=== PATIENT | female | born 1995 | race Caucasian/White ===

== ENCOUNTER 2023-08-31 15:22 | Emergency (ER) | payer OTHER ==
[2023-08-31 15:31] VITALS: BP 132/82; PULSE 88; RESP 18; TEMP 98.2; BMI 26.6
[2023-08-31] MEDS ORDERED: IBUPROFEN 600 MG TABLET (FP) PO ONE (15:39)
[2023-08-31] MEDS: IBUPROFEN 600 MG TABLET (FP) PO ONE (15:41)
== END 2023-08-31 16:30 | disposition home or self-care (01) ==
LOC: JER 15:22
DX: S39.012A Strain of muscle, fascia and tendon of lower back, initial encounter (principal); T24.032A Burn of unspecified degree of left lower leg, initial encounter; M54.6 Pain in thoracic spine; V43.32XA Unspecified car occupant injured in collision with other type car in nontraffic accident, initial encounter; Y93.I9 Activity, other involving external motion; Y92.412 Parkway as the place of occurrence of the external cause
CPT/HCPCS: 99283-25